=== PATIENT | female | born 1985 | race Caucasian/White ===

== ENCOUNTER 2021-06-18 20:05 | Emergency (ER) | payer OTHER | END 2021-06-18 23:38 | disposition home or self-care (01) | LOC: CSHERS 20:05 | DX: S30.1XXA Contusion of abdominal wall, initial encounter (principal); M54.2 Cervicalgia; V49.9XXA Car occupant (driver) (passenger) injured in unspecified traffic accident, initial encounter | CPT/HCPCS: 71260; 72125; 74177 ==